=== PATIENT | male | born 1955 | race Caucasian/White ===

== ENCOUNTER → 2021-01-26 14:44 | Outpatient (CLI) | payer MEDICARE, MEDICAID, SELFPAY ==
--- NOTE | 2021-01-26 14:48 | CT_ITS ---
STUDY: LOW DOSE CT LUNG CANCER SCREENING REASON FOR EXAM: Male, 65 years old. Long history of smoking. Screening for lung cancer. RADIATION DOSAGE (If Supplied By Facility): CTDIvol = ( 4.02 ) mGy, DLP = ( 140.94 ) mGycm TECHNIQUE: No contrast was administered. Low dose technique was utilized (average mAS-38 and kVp 120). 1.25 mm axial source images with a slice interval of 1.25-mm were reconstructed in lung windows. 2.5 mm axial source images with a slice interval of 2.5-mm were reconstructed in lung windows. 5.0 mm axial source images with a slice interval of 5.0-mm were reconstructed in soft tissue windows. Nodule measured using lung windows on PACS and/or independent workstation with automated measurement of minimum and maximum diameter. Nodule measurement reported as average diameter rounded to the nearest whole number. Growth is defined as an increase ins size of greater than 1.5 mm. COMPARISON: None. NODULES: There is hyperinflation of the lungs consistent with chronic obstructive lung disease (COPD). There is bronchial wall thickening suggesting chronic bronchitis. Subpleural irregular opacities are seen in the lung apices are consistent with scarring. There are no suspicious lung nodules There are no endobronchial lesions. There is no demonstrated pleural abnormality. Sternal cerclage wires and vascular clips are present from a prior sternotomy and coronary artery bypass graft procedure (CABG). Normal mediastinum. Normal hilar regions. Normal unenhanced pulmonary arteries. Normal aorta arch and descending thoracic aorta. Normal osseous structures. There is no demonstrated abnormality of the visualized upper abdomen. CT/Low Dose CT Lung Screening IMPRESSION: Lung-RADS category 2. COPD. Chronic bronchitis. Recommendation: Routine screening CT scan in one year. IMPORTANT NOTES FOR USE: ACR Lung-RADS Version 1.0 Assessment Categories Release Date: September 14, 2013 Category: Coded 0-4 bases on nodule(s) with highest degree of suspicion. Negative screen is defined as categories 1 and 2; a positive screen is defined as categories 3 and 4. Category 3 and 4A nodules that are unchanged on interval CT should be coded as category 2, and individuals returned to screening in 12 months. Category 4X: Category 3 or 4 nodules with additional imaging findings that increase the suspicion of lung cancer, such as spiculation, GGN that doubles in size in 1 year, enlarged lymph notes, etc. Category Modifiers: S (significant finding unrelated to lung cancer) and C (prior history of treated lung cancer) may be added to the 0-4 Lung-RADS Electronically Signed: Amor Rogers MD at 6:32 EDT Tel , Service support ,
== END ==
PROVIDERS: PCP Student in an Organized Health Care Education/Training Program; Referring Provider Internal Medicine Critical Care Medicine; Visit Provider Internal Medicine Critical Care Medicine
DX: Z12.2 Encounter for screening for malignant neoplasm of respiratory organs (principal); F17.211 Nicotine dependence, cigarettes, in remission
CPT/HCPCS: 71271

== ENCOUNTER → 2021-02-17 12:12 | Outpatient (CLI) | payer MEDICARE, MEDICAID, SELFPAY ==
[2021-02-17 12:45] VITALS: PULSE 103; PULSE 107; PULSE 109; PULSE 112; PULSE 95; PULSE 99; O2SAT 86; O2SAT 87; O2SAT 89; O2SAT 90; O2SAT 92
--- NOTE | 2021-02-17 13:34 | CPS ---
Patient wears 2 lpm O2 at home. Patient came in on his O2 at 2 lpm pulse dose. Room air SpO2 86%. Patient recovered to 92% on 2 lpm pulse dose before beginning test.
--- NOTE | 2021-02-18 11:41 | PCM.PSN.6M ---
PSN 6 Minute Walk Test 6 Minute Walk Test 6 Minute Walk Test: 6 Minute Walk Test PSN:6-Minute Walk Test Start: 02/17/21 13:23 Freq: Status: Active Protocol: [id number] Document 02/17/21 12:45 THAIS (Rec: 02/17/21 13:39 [place] [id number]) 6 Minute Walk Test Date Performed 02/17/21 Time Performed 12:45 Height 5 ft 10 in Weight: 97.522 kg Weight in Pounds 215.[address]: Elliott Enamorado Assistive device used: None Pre-test Oxygen Delivery Method Room Air Pulse Ox (%) 86 Pulse Rate (60-100 beats/min) 95 Dyspnea Louis Scale (0-10) 0 Exertion Louis Scale (6-20) 6 1st minute Oxygen Flow Rate (L/min) (L/min) 2 Oxygen Delivery Method Nasal Cannula Pulse Ox (%) 90 Pulse Rate (60-100 beats/min) 103 H 2nd minute Oxygen Flow Rate (L/min) (L/min) 2 Oxygen Delivery Method Nasal Cannula Pulse Ox (%) 89 Pulse Rate (60-100 beats/min) 107 H 3rd minute Oxygen Flow Rate (L/min) (L/min) 2 Oxygen Delivery Method Nasal Cannula Pulse Ox (%) 89 Pulse Rate (60-100 beats/min) 107 H 4th minute Oxygen Flow Rate (L/min) (L/min) 2 Oxygen Delivery Method Nasal Cannula Pulse Ox (%) 90 Pulse Rate (60-100 beats/min) 109 H 5th minute Oxygen Flow Rate (L/min) (L/min) 2 Oxygen Delivery Method Nasal Cannula Pulse Ox (%) 89 Pulse Rate (60-100 beats/min) 109 H 6th minute Oxygen Flow Rate (L/min) (L/min) 2 Oxygen Delivery Method Nasal Cannula Pulse Ox (%) 87 Pulse Rate (60-100 beats/min) 112 H Dyspnea Louis Scale (0-10) 5 Exertion Louis Scale (6-20) 14 Post-test Oxygen Flow Rate (L/min) (L/min) 2 Oxygen Delivery Method Nasal Cannula Pulse Ox (%) 92 Pulse Rate (60-100 beats/min) 99 Full Laps Walked 15 Partial Lap, Number of Tiles Walked 20 Total Distance Walked (ft) 905 02/17/21 13:34 Cardiopulmonary Services by Pily Vera Patient wears 2 lpm O2 at home. Patient came in on his O2 at 2 lpm pulse dose. Room air SpO2 86%. Patient recovered to 92% on 2 lpm pulse dose before beginning test. Initialized on 02/17/21 13:34 - END OF NOTE Interpretation Interpretation: The patient was noted to be 86% on room air and was placed on 2 L nasal cannula with improvement to 92%. The patient then ambulated a total of 905 feet over the course of 6 minutes with desaturation to 87% in the 6-minute. Patient did have some reflexive tachycardia to as high as 112 bpm. These findings are consistent with a respiratory limitation exercise tolerance. Recommendations Recommendations: The patient requires 2 L pulse dose at rest, but should be using 3 L pulse dose with exertion.
== END ==
PROVIDERS: PCP Student in an Organized Health Care Education/Training Program; Referring Provider Internal Medicine Critical Care Medicine; Visit Provider Internal Medicine Critical Care Medicine
DX: J96.11 Chronic respiratory failure with hypoxia (principal)
CPT/HCPCS: 94618

== ENCOUNTER → 2022-09-07 | Outpatient (CLI) | payer MEDICARE, MEDICAID, SELFPAY ==
--- NOTE | 2022-09-07 18:54 | CT_ITS ---
INDICATION: h/o Tobacco Dependency EXAMINATION: CT CHEST WITH CONTRAST - CT Low Dose CT Chest for Lung Cancer Screening A radiation dose optimization technique was used for this scan. COMPARISON: Chest CT 01/26/2021. FINDINGS: Noncontrast serial CT axial images through the chest with coronal and sagittal reformatted series. MEDIASTINUM: Stable mediastinal adenopathy measuring up to 13 mm in the subcarinal region. LUNG PARENCHYMA: Multiple stable biapical subpleural pulmonary nodules. Peripheral subpleural cystic emphysematous lung changes. No acute pulmonary parenchymal abnormality. PLEURA: No pleural effusion. No pneumothorax. BONES: Osseous structures are unremarkable for age. UPPER ABDOMEN: Unremarkable. CT/Low Dose CT Lung Screening IMPRESSION: Lung-RADS 2: Benign Appearance Nodules with very low likelihood of becoming clinically active cancer. Annual screening with low dose CT in 12 months. Stable biapical nodular pleural thickening with mediastinal adenopathy from 2020. Electronically Signed: Blaze Wolf MD at 5:43 EDT ,
== END | disposition home or self-care (01) ==
PROVIDERS: PCP Student in an Organized Health Care Education/Training Program; Referring Provider Internal Medicine Critical Care Medicine; Visit Provider Internal Medicine Critical Care Medicine
DX: Z12.2 Encounter for screening for malignant neoplasm of respiratory organs (principal); F17.211 Nicotine dependence, cigarettes, in remission
CPT/HCPCS: 71271

== ENCOUNTER → 2023-10-07 | Outpatient (CLI) | payer MEDICARE, MEDICAID, SELFPAY ==
--- NOTE | 2023-10-07 13:56 | CT_ITS ---
EXAM: CT CHEST, LUNG CANCER SCREENING WITHOUT INTRAVENOUS CONTRAST CLINICAL INDICATION: smoker TECHNIQUE: Helically acquired images were obtained of the chest without intravenous contrast using low dose (LDCT) lung cancer screening protocol. This CT exam was performed using one or more of the following dose reduction techniques: automated exposure control, adjustment of the mA and/or kV according to patient size, and/or use of iterative reconstruction technique. COMPARISON: 09/07/2029 FINDINGS: LUNGS AND PLEURAL SPACES: There is scarring in the lung apices. There are mild emphysematous changes in lung apices. No mass. No pleural effusion or thickening. No pneumothorax. HEART: There are mild coronary artery calcifications. Heart size is normal. No pericardial effusion. MEDIASTINUM: Unremarkable. No mediastinal or hilar adenopathy. Esophagus is unremarkable. No hiatal hernia. THYROID: Unremarkable. No thyroid lesions. BONES/JOINTS: Unremarkable. No suspicious lytic or blastic abnormality. VASCULATURE: See above. LYMPH NODES: Unremarkable. No enlarged lymph nodes. CT/Low Dose CT Lung Screening IMPRESSION: Scarring and emphysematous changes in the lung apices. There is no acute pulmonary abnormality. There has been no change from the reference exam. Lung-RADS score: 1 - Recommend continued annual screening with a low-dose CT (LDCT) in 12 months. Electronically Signed: Omid Timmons MD at 0:05 EDT ,
== END | disposition home or self-care (01) ==
LOC: CT 13:49
PROVIDERS: PCP Student in an Organized Health Care Education/Training Program; Referring Provider Nurse Practitioner Acute Care; Visit Provider Nurse Practitioner Acute Care
DX: F17.210 Nicotine dependence, cigarettes, uncomplicated (principal)
CPT/HCPCS: 71271